=== PATIENT | female | born 1975 | race Caucasian/White ===

== ENCOUNTER 2020-03-08 00:14 | Emergency (ER) | payer SELFPAY ==
[~2020-03-08] VITALS: Ht 152.4 cm; Wt 76.7 kg
[2020-03-08 00:23] VITALS: BP 200/117
[2020-03-08 00:27] VITALS: BP 200/117
== END 2020-03-08 00:32 ==
LOC: MED 00:14
DX: Z04.1 Encounter for examination and observation following transport accident (principal); Z02.89 Encounter for other administrative examinations
CPT/HCPCS: 99283